=== PATIENT | male | born 2000 | race Caucasian/White ===

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

== ENCOUNTER 2022-01-05 14:54 | Emergency (ER) | payer OTHER, MEDICAID ==
[~2022-01-05] VITALS: Ht 185.4 cm; Wt 66.1 kg
[2022-01-05 16:41] LABS: BASO # 0.1 10^3/uL (0.0-0.2); BASO % 0.8 % (0.0-1.0); EOS # 0.3 10^3/uL (0.0-0.5); EOS % 3.8 % (0.0-3.0); HEMATOCRIT 42.3 % (42.0-52.0); HEMOGLOBIN 14.6 g/dl (13.5-17.5); LYMPH # 2.8 10^3/uL (1.5-5.0); LYMPH % 39.9 % (24.0-44.0); MEAN CORPUSCULAR HEMOGLOBIN 30.7 pg (27.0-33.0); MEAN CORPUSCULAR HGB CONC 34.5 g/dl (32.0-36.5); MEAN CORPUSCULAR VOLUME 88.9 fl (80.0-96.0); MONO # 0.5 10^3/uL (0.0-0.8); MONO % 7.4 % (2.0-8.0); NEUTROPHILS # 3.4 10^3/uL (1.5-8.5); NEUTROPHILS % 47.8 % (36.0-66.0); PLATELET COUNT, AUTOMATED 283 10^3/uL (150-450); RED BLOOD COUNT 4.76 10^6/uL (4.30-6.10); WHITE BLOOD COUNT 7.1 10^3/uL (4.0-10.0)
[2022-01-05 16:59] LABS: ALBUMIN 4.3 GM/DL (3.2-5.2); ALT/SGPT 26 U/L (12-78); BILIRUBIN,DIRECT 0.3 MG/DL (0.0-0.2); BILIRUBIN,TOTAL 0.8 MG/DL (0.2-1.0); BLOOD UREA NITROGEN 11 MG/DL (7-18); CALCIUM LEVEL 9.5 MG/DL (8.5-10.1); CARBON DIOXIDE LEVEL 23 MEQ/L (21-32); CHLORIDE LEVEL 104 MEQ/L (98-107); CREATININE FOR GFR 0.94 MG/DL (0.70-1.30); GLUCOSE, FASTING 87 MG/DL (70-100); SODIUM LEVEL 137 MEQ/L (136-145); TOTAL PROTEIN 7.8 GM/DL (6.4-8.2)
[2022-01-05 19:12] VITALS: BP 104/52
== END 2022-01-05 19:14 | disposition home or self-care (01) ==
LOC: M ED 14:54
DX: F44.5 Conversion disorder with seizures or convulsions (principal); Z88.8 Allergy status to other drugs, medicaments and biological substances; Z91.013 Allergy to seafood

== ENCOUNTER 2022-05-17 23:02 | Emergency (ER) | payer OTHER, MEDICAID ==
[~2022-05-17] VITALS: Ht 185.4 cm; Wt 66.2 kg
[2022-05-18] MEDS ORDERED: ZOLO50TA PO (02:05)
[2022-05-18] MEDS ORDERED: IBUPROFEN 600MG TAB PO ONE (02:15)
[2022-05-18] MEDS ORDERED: LIDOCAINE VISCOUS 2% SOLN 15ML UDC SS ONE (02:15)
[2022-05-18] MEDS ORDERED: IBUP-1022 PO (03:22)
[2022-05-18 03:38] VITALS: BP 115/83
== END 2022-05-18 03:51 | disposition home or self-care (01) ==
LOC: M ED 23:02
DX: J02.9 Acute pharyngitis, unspecified (principal); F32.9 Major depressive disorder, single episode, unspecified; Z91.018 Allergy to other foods; Z91.013 Allergy to seafood

== ENCOUNTER 2022-09-09 07:31 | Emergency (ER) | payer OTHER, MEDICAID ==
[~2022-09-09] VITALS: Ht 185.4 cm; Wt 60.2 kg
[~2022-09-09 07:31] MED LIST changes: +IBUP-1022 PO; +ZOLO50TA PO
[2022-09-09 08:57] LABS: RSV AMPLIFICATION NEGATIVE (NEGATIVE)
[2022-09-09] MEDS ORDERED: ALBUTEROL 90 MCG/ACT 8GM HFA INHALER INH STA (10:03)
[2022-09-09 10:27] LABS: HEMATOCRIT 43.3 % (42.0-52.0); HEMOGLOBIN 14.6 g/dl (13.5-17.5); MEAN CORPUSCULAR HEMOGLOBIN 30.1 pg (27.0-33.0); MEAN CORPUSCULAR HGB CONC 33.7 g/dl (32.0-36.5); MEAN CORPUSCULAR VOLUME 89.3 fl (80.0-96.0); PLATELET COUNT, AUTOMATED 304 10^3/uL (150-450); RED BLOOD COUNT 4.85 10^6/uL (4.30-6.10); WHITE BLOOD COUNT 12.4 10^3/uL (4.0-10.0)
[2022-09-09 10:56] LABS: BLOOD UREA NITROGEN 11 MG/DL (9-23); CALCIUM LEVEL 8.7 MG/DL (8.5-10.1); CARBON DIOXIDE LEVEL 29 MMOL/L (20-31); CHLORIDE LEVEL 102 MMOL/L (98-107); CREATININE FOR GFR 0.79 MG/DL (0.70-1.30); GLUCOSE, FASTING 83 MG/DL (60-100); POTASSIUM SERUM 4.1 MMOL/L (3.5-5.1); SODIUM LEVEL 136 MMOL/L (136-145)
[2022-09-09] MEDS ORDERED: IPRATROPIUM 0.5MG/ALBUTEROL 2.5MG INH SOL UD 3ML (DUONEB) NEB PRN (11:25)
[2022-09-09] MEDS ORDERED: ISOVUE-370 76% 100ML VIAL As Ordered ONE (11:55)
[2022-09-09 12:12] LABS: CK-MB VALUE MASS 1.2 NG/ML (<3.6)
[2022-09-09 12:13] LABS: CPK CREATINE PHOSPHOKINASE 188 U/L (46-171); MB/CK RELATIVE INDEX 0.63 (< OR =4)
[2022-09-09 13:02] LABS: CK-MB VALUE MASS < 1.0 NG/ML (<3.6)
[2022-09-09 13:04] LABS: CPK CREATINE PHOSPHOKINASE 162 U/L (46-171); MB/CK RELATIVE INDEX 0.61 (< OR =4)
[2022-09-09] MEDS ORDERED: PRED20TA PO (14:03)
[2022-09-09] MEDS ORDERED: PROA1AER2 INH (14:03)
[2022-09-09 14:14] VITALS: BP 114/59
== END 2022-09-09 14:20 | disposition home or self-care (01) ==
LOC: M ED 07:31
DX: J44.1 Chronic obstructive pulmonary disease with (acute) exacerbation (principal); F12.10 Cannabis abuse, uncomplicated; R91.8 Other nonspecific abnormal finding of lung field; R56.9 Unspecified convulsions; F41.9 Anxiety disorder, unspecified; F32.9 Major depressive disorder, single episode, unspecified; F17.200 Nicotine dependence, unspecified, uncomplicated; Z79.899 Other long term (current) drug therapy; Z91.013 Allergy to seafood
CPT/HCPCS: 36415; 71046; 71275; 80048; 82550; 82553; 84484; 85027; 85379; 87631; 87880; 93005; 94640; 99284; Q9967

== ENCOUNTER 2023-05-20 07:25 | Emergency (ER) | payer OTHER, MEDICAID ==
[~2023-05-20] VITALS: Ht 185.4 cm; Wt 62.1 kg
[~2023-05-20 07:25] MED LIST changes: +PRED20TA PO; +PROA1AER2 INH
[2023-05-20] MEDS ORDERED: AMOX500C PO (07:36)
[2023-05-20] MEDS ORDERED: IBUP200C33 PO (07:36)
[2023-05-20] MEDS ORDERED: KETOROLAC 60MG 2ML VIAL IM ONE (09:30)
[2023-05-20] MEDS ORDERED: AUGMENTIN 875 MG TAB PO ONE (09:30)
[2023-05-20] MEDS ORDERED: AMOX875T2 PO (10:02)
[2023-05-20 10:16] VITALS: BP 114/62; TEMP 97.2; O2SAT 98
== END 2023-05-20 10:17 | disposition home or self-care (01) ==
LOC: M ED 07:25
DX: K04.7 Periapical abscess without sinus (principal); F12.10 Cannabis abuse, uncomplicated; F17.200 Nicotine dependence, unspecified, uncomplicated; Z91.013 Allergy to seafood; Z91.048 Other nonmedicinal substance allergy status; Z79.2 Long term (current) use of antibiotics; Z79.1 Long term (current) use of non-steroidal anti-inflammatories (NSAID)
CPT/HCPCS: 96372; 99283; J1885